=== PATIENT | female | born 1985 | race Caucasian/White ===

== ENCOUNTER 2017-04-25 20:36 | Inpatient (IN) | payer BC ==
[~2017-04-25] VITALS: Ht 162.6 cm; Wt 88.0 kg
[2017-04-25 21:00] VITALS: BP 133/79
[2017-04-25 21:30] LABS: APPEARANCE,URINE Clear (CLEAR); BILIRUBIN,URINE Negative (NEGATIVE); COLOR,URINE Yellow (YELLOW); GLUCOSE, URINE (UA) Negative (NEGATIVE); KETONES,URINE Trace mg/dL (NEGATIVE); LEUKOCYTE ESTERASE ,URINE Trace (NEGATIVE); NITRATE,URINE Negative (NEGATIVE); OCCULT BLOOD,URINE Negative (NEGATIVE); PH,URINE 6.5 (5.0-8.0); PROTEIN,URINE Negative (NEGATIVE); UROBILINOGEN,URINE 0.2 mg/dL (0.2-1.0)
[2017-04-25 21:45] LABS: AMORPHOUS SEDIMENT,UR Rare /LPF (None Seen); BACTERIA,URINE Rare /HPF (None Seen); RBC,URINE 0-1 /HPF (0-1); SQUAMOUS EPITHELIAL CELL,UR Few /LPF (0-2)
[2017-04-25] MEDS: LACTATED RINGERS 1000ML 1,000 ML IV PRN (21:45)
[2017-04-25 21:59] LABS: HEMATOCRIT 33.3 % (36-48); MEAN CORPUSCULAR HEMOGLOBIN 31.5 pg (27.0-33.0); MEAN CORPUSCULAR HGB CONC 35.5 g/dL (32.0-36.0); MEAN CORPUSCULAR VOLUME 88.8 fL (79-99); PLATELET COUNT (AUTO) 259 K/uL (130-400); RED BLOOD CELL COUNT(AUTO) 3.75 MIL/uL (4.00-5.50); RED CELL DISTRIBUTION WIDTH 13.8 % (11.0-15.5); WHITE BLOOD COUNT (AUTO) 11.5 K/uL (4.8-10.8)
[2017-04-25] MEDS ORDERED: OXYTOCIN 10 USP UNITS/ML ONE (23:36)
[2017-04-25] MEDS ORDERED: LACTATED RINGERS 1000ML 1,000 ML IV ONE (23:36)
[2017-04-26] MEDS ORDERED: OXYTOCIN 10 USP UNITS/ML 20 UNIT in LACTATED RINGERS 1000ML 1,000 ML IV SCH (03:00)
[2017-04-26] MEDS: LACTATED RINGERS 1000ML 1,000 ML IV PRN (06:23)
[2017-04-26] MEDS ORDERED: MEPERIDINE-PF 50 MG/ML SYG IVP SCH (08:00)
[2017-04-26] MEDS ORDERED: PROMETHAZINE HCL 25 MG/ML 1ML AMPULE IM SCH (08:00)
[2017-04-26] MEDS ORDERED: ACETAMINOPHEN 325 MG TAB PO PRN (10:45)
[2017-04-26] MEDS ORDERED: ACETAMINOPHEN-CODEINE 300/30MG TAB PO PRN (10:45)
[2017-04-26] MEDS ORDERED: DIPH,PERTUSS(ACELL),TET VAC/PF 0.5 ML VIAL IM PRN (10:45)
[2017-04-26] MEDS ORDERED: WITCH HAZEL 1 PAD TP PRN (10:45)
[2017-04-26] MEDS ORDERED: MEASLES/MUMPS/RUBELLA VACCINE, LIVE 0.5 ML/VIAL SQ PRN (10:45)
[2017-04-26] MEDS ORDERED: IBUPROFEN 600 MG TABLET PO PRN (10:45)
[2017-04-26] MEDS ORDERED: LANOLIN 30GM OINTMENT TP PRN (10:45)
[2017-04-26] MEDS ORDERED: OXYTOCIN-LR 20 UNITS/1000 ML 1,000 ML IV SCH (10:45)
[2017-04-26] MEDS ORDERED: LACTATED RINGERS 1000ML 1,000 ML IV ONE (10:56)
[2017-04-26] MEDS ORDERED: OXYTOCIN 10 USP UNITS/ML ONE (10:56)
[2017-04-26 11:30] VITALS: BP 119/79
[2017-04-26 15:45] VITALS: BP 116/57
[2017-04-26 19:27] VITALS: BP 108/72
[2017-04-26] MEDS: DOCUSATE SODIUM 100 MG CAP PO SCH (22:18)
[2017-04-26 23:04] VITALS: BP 114/73
[2017-04-27 03:12] VITALS: BP 113/72
[2017-04-27 05:29] LABS: HEMATOCRIT 34.6 % (36-48); MEAN CORPUSCULAR HEMOGLOBIN 31.1 pg (27.0-33.0); MEAN CORPUSCULAR HGB CONC 34.5 g/dL (32.0-36.0); MEAN CORPUSCULAR VOLUME 89.9 fL (79-99); PLATELET COUNT (AUTO) 244 K/uL (130-400); RED BLOOD CELL COUNT(AUTO) 3.85 MIL/uL (4.00-5.50); RED CELL DISTRIBUTION WIDTH 14.2 % (11.0-15.5); WHITE BLOOD COUNT (AUTO) 15.2 K/uL (4.8-10.8)
[2017-04-27 07:19] VITALS: BP 113/62
[2017-04-27 08:22] LABS: HEPATITIS Bs ANTIGEN SCREEN P Negative (Negative)
[2017-04-27] MEDS: DOCUSATE SODIUM 100 MG CAP PO SCH (09:33)
[2017-04-27] MEDS ORDERED: IBUP-2070 PO (10:42)
[2017-04-27 11:04] VITALS: BP 116/67
== END 2017-04-27 14:40 | disposition home or self-care (01) | DRG 775 ==
LOC: LDH 20:36 → OBSVTOIN 20:36 → WSH 04-26 11:24
PROVIDERS: ADMIT Obstetrics & Gynecology; ATTEND Obstetrics & Gynecology
PROC: 10E0XZZ Delivery of Products of Conception, External Approach (ICD-10-PCS; principal; 2017-04-26)
PROC: 10907ZC Drainage of Amniotic Fluid, Therapeutic from Products of Conception, Via Natural or Artificial Opening (ICD-10-PCS; 2017-04-26)
DX: O80 Encounter for full-term uncomplicated delivery (principal); Z28.21 Immunization not carried out because of patient refusal; Z37.0 Single live birth; Z3A.39 39 weeks gestation of pregnancy; Z90.49 Acquired absence of other specified parts of digestive tract; Z82.49 Family history of ischemic heart disease and other diseases of the circulatory system; Z80.42 Family history of malignant neoplasm of prostate; Z80.1 Family history of malignant neoplasm of trachea, bronchus and lung; Z98.82 Breast implant status
CPT/HCPCS: 36415; 76815; 81001; 85027; 86592; 86850; 86900; 86901; 87340; A4351; J2175; J2550; J2590; J7120